=== PATIENT | male | born 1980 | race Caucasian/White ===

== ENCOUNTER 2016-11-22 20:31 | Emergency (ER) | payer OTHER ==
[2016-11-22 21:10] LABS: BASO # 0.1 10_X3_uL (0.0-0.1); BASO % 0.5 % (0.2-1.2); EOS # 0.6 10_X3_uL (0.0-0.5); GRAN # 5.3 10_X3_uL (1.8-5.4); GRAN % 52.2 % (34.0-67.9); HEMATOCRIT 42.3 % (40-51); HEMOGLOBIN 14.7 g/dL (13.7-17.5); LYMPH # 3.5 10_X3_uL (1.3-3.6); LYMPH % 34.9 % (21.8-53.1); MEAN CORPUSCULAR HEMOGLOBIN 33.4 pg (27.0-33.0); MEAN CORPUSCULAR HGB CONC 34.8 g/dL (32.0-36.0); MEAN CORPUSCULAR VOLUME 96.1 fL (79-92); MEAN PLATELET VOLUME 11.9 fl (7.5-11.5); MONO # 0.7 10_X3_uL (0.3-0.8); MONO % 6.4 % (5.3-12.2); PLATELET COUNT 234 x10_3/uL (163-337); RED CELL DISTRIBUTION WIDTH 14.2 % (11.6-14.4); WHITE BLOOD COUNT 10.2 x10_3/uL (4.2-9.1)
[2016-11-22 21:23] LABS: ALBUMIN 4.4 gm/dL (3.4-5.0); ALKALINE PHOSPHATASE 73 U/L (50-136); ALT/SGPT 30 U/L (7.53-40.17); AST/SGOT 41 U/L (6.66-35.34); BILIRUBIN,TOTAL 0.26 mg/dL (0.0-1.0); BLOOD UREA NITROGEN 15 mg/dL (7-18); CALCIUM 9.1 mg/dL (8.7-10.7); CARBON DIOXIDE 26 mmol/L (21-32); CREATINE KINASE 284 U/L (35-232); CREATININE 0.9 mg/dL (0.6-1.3); GLUCOSE,RANDOM 101 mg/dL (70-99); LIPASE 32 U/L (6.75-60.75); SODIUM 134 mmol/L (136-145); TOTAL PROTEIN 7.4 gm/dL (6.4-8.2)
[2016-11-22 21:25] LABS: POTASSIUM 4.8 mmol/L (3.5-5.1)
== END 2016-11-22 23:58 | disposition home or self-care (01) ==
LOC: ER 20:31
PROVIDERS: Emergency Medicine
DX: R07.2 Precordial pain (principal); M79.602 Pain in left arm; M25.512 Pain in left shoulder; M54.10 Radiculopathy, site unspecified; Z86.79 Personal history of other diseases of the circulatory system; Z79.82 Long term (current) use of aspirin; Z79.899 Other long term (current) drug therapy; Z88.8 Allergy status to other drugs, medicaments and biological substances
CPT/HCPCS: 36415; 71010; 71260; 80053; 82550; 82553; 83690; 85025; 93005; 99070; 99285-25; J7040; Q9967

== ENCOUNTER 2016-11-23 02:48 | Emergency (ER) | payer OTHER | END 2016-11-23 05:55 | disposition short-term general hospital (02) | LOC: ER 02:48 | DX: I26.99 Other pulmonary embolism without acute cor pulmonale (principal); M79.1 Myalgia; R07.2 Precordial pain; F11.21 Opioid dependence, in remission; G89.29 Other chronic pain; M54.9 Dorsalgia, unspecified; F17.210 Nicotine dependence, cigarettes, uncomplicated; Z88.8 Allergy status to other drugs, medicaments and biological substances; Z79.82 Long term (current) use of aspirin; Z79.899 Other long term (current) drug therapy | CPT/HCPCS: 36415; 85379; 99070; 99285 ==